=== PATIENT | male | born 1985 | race Asian ===

== ENCOUNTER 2016-09-13 11:09 | Outpatient (CLI) | payer OTHER ==
[2016-09-13 11:22] LABS: PLATELET COUNT 216 K/uL (142-355)
[2016-09-13 11:51] LABS: SODIUM 137 mmol/L (136-145)
== END 2016-09-13 20:50 | disposition home or self-care (01) ==
LOC: LABW 11:09
PROVIDERS: Physician Assistant
DX: Z00.00 Encounter for general adult medical examination without abnormal findings (principal); F17.200 Nicotine dependence, unspecified, uncomplicated; K21.9 Gastro-esophageal reflux disease without esophagitis; Z80.1 Family history of malignant neoplasm of trachea, bronchus and lung
CPT/HCPCS: 36415; 80053; 80061; 84439; 84443; 85027